=== PATIENT | male | born 2000 | race African-American/Black ===

== ENCOUNTER 2019-09-12 04:53 | Emergency (ER) | payer SELFPAY ==
[2019-09-12] MEDS ORDERED: Ketorolac Tromethamine 30 MG/ML VIAL ONE (05:19)
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
== END 2019-09-12 05:36 | disposition home or self-care (01) ==
LOC: ERS 04:53
DX: S61.451A Open bite of right hand, initial encounter (principal); S60.221A Contusion of right hand, initial encounter; J45.909 Unspecified asthma, uncomplicated; F31.9 Bipolar disorder, unspecified; Y04.1XXA Assault by human bite, initial encounter
CPT/HCPCS: 96372; J1885

== ENCOUNTER 2021-07-24 20:47 | Emergency (ER) | payer BC ==
[2021-07-24] MEDS ORDERED: EPINEPHrine 1 MG/ML VIAL ONE (21:17)
[2021-07-24] MEDS ORDERED: methylPREDNISolone Sod Succ/PF 125 MG/2 ML VIAL ONE (21:17)
[2021-07-24] MEDS ORDERED: diphenhydrAMINE 50 MG/ML VIAL ONE (21:17)
[2021-07-24] MEDS ORDERED: Famotidine/PF 20 mg/2ml Vial ONE (21:17)
[2021-07-24] MEDS ORDERED: Albuterol Sulfate 2.5 mg/3 ml Neb ONE (21:38)
[2021-07-24] MEDS ORDERED: Ipratropium Bromide 2.5 ml Neb ONE (21:42)
== END 2021-07-25 01:15 | disposition home or self-care (01) ==
LOC: ERS 20:47
DX: T78.2XXA Anaphylactic shock, unspecified, initial encounter (principal); L50.0 Allergic urticaria
CPT/HCPCS: 96372; 96374; 96375; J0171; J1200; J2930; J7611; S0028

== ENCOUNTER 2022-09-12 03:44 | Emergency (ER) | payer BC | END 2022-09-12 04:46 | disposition left against medical advice (07) | LOC: ERS 03:44 | DX: Z53.21 Procedure and treatment not carried out due to patient leaving prior to being seen by health care provider (principal) ==